=== PATIENT | female | born 1995 | race Two or more races ===

== ENCOUNTER 2019-11-27 23:27 | Emergency (ER) | payer OTHER ==
[~2019-11-27] VITALS: Ht 157.5 cm; Wt 77.3 kg
[2019-11-28 01:52] LABS: BASOPHILS % (AUTO) 0.7 % (0.0-2.0); HEMATOCRIT 37.8 % (36-46); HEMOGLOBIN 12.8 g/dL (12.0-16.0); LYMPHOCYTES # (AUTO) 2.5 K/uL (1.0-4.8); LYMPHOCYTES % (AUTO) 23.9 % (22.0-44.0); MEAN CORPUSCULAR HEMOGLOBIN 28.9 pg (26.0-34.0); MEAN CORPUSCULAR HGB CONC 33.9 G/dL (31.0-37.0); MEAN CORPUSCULAR VOLUME 85 fL (80-100); MONOCYTES # (AUTO) 0.6 K/uL (0.1-1.0); MONOCYTES % (AUTO) 5.9 % (2.0-9.0); NEUTROPHILS # (AUTO) 7.1 K/uL (1.8-7.7); NEUTROPHILS % (AUTO) 68.5 % (40.0-70.0); PLATELET COUNT (AUTO) 308 K/uL (150-450); RED BLOOD CELL COUNT(AUTO) 4.42 MIL/uL (4.00-5.20); RED CELL DISTRIBUTION WIDTH 13.1 % (11.5-14.5)
[2019-11-28 02:05] LABS: AMPHET/METH SCREEN,URINE NEGATIVE (NEGATIVE); BARBITURATE SCREEN, URINE NEGATIVE (NEGATIVE); BENZODIAZEPINES SCREEN,URINE NEGATIVE (NEGATIVE); CANNABINOID SCREEN,URINE NEGATIVE (NEGATIVE); COCAINE SCREEN,URINE NEGATIVE (NEGATIVE); METHADONE SCREEN, URINE NEGATIVE (NEGATIVE); OPIATE SCREEN,URINE NEGATIVE (NEGATIVE); PHENCYCLIDINE SCREEN,URINE NEGATIVE (NEGATIVE)
[2019-11-28 02:06] LABS: ANION GAP 12 mmol/L (8-16); CALCIUM, TOTAL 9.7 mg/dL (8.8-10.5); CARBON DIOXIDE 26 mmol/L (22-29); CHLORIDE 103 mmol/L (98-107); CREATININE 0.68 mg/dL (0.60-1.30); GLOMERULAR FILTR. RATE CALC > 60 mL/min (>60); GLUCOSE,RANDOM 107 mg/dL (70-110); POTASSIUM 3.9 mmol/L (3.5-5.1); SODIUM SERUM 141 mmol/L (136-145); UREA NITROGEN, BLOOD 12 mg/dL (7-18)
[2019-11-28 02:17] LABS: ALANINE AMINOTRANSFERASE 18 U/L (12-78); ALBUMIN 4.3 g/dL (3.4-5.0); ALKALINE PHOSPHATASE 68 U/L (46-116); ASPARTATE AMINOTRANSFERASE 13 U/L (15-37); BILIRUBIN,TOTAL 0.2 mg/dL (0.1-1.0); HCG,QUANTITATIVE < 1 mIU/mL (0-6)
[2019-11-28 03:04] VITALS: BP 118/71
== END 2019-11-28 03:05 | disposition home or self-care (01) ==
LOC: EMS 23:27
DX: R45.851 Suicidal ideations (principal); F32.9 Major depressive disorder, single episode, unspecified
CPT/HCPCS: 36415; 80053; 80307; 84702; 85025; 99285; G0480

== ENCOUNTER 2022-03-15 13:00 | Emergency (ER) | payer OTHER ==
[~2022-03-15] VITALS: Ht 157.5 cm; Wt 86.4 kg
[2022-03-15] MEDS ORDERED: SODIUM CHLORIDE 0.9% 1,000 ML IV ONE (13:45)
[2022-03-15 13:57] LABS: ANION GAP 9 mmol/L (8-16); CALCIUM, TOTAL 9.5 mg/dL (8.8-10.5); CARBON DIOXIDE 29 mmol/L (22-29); CHLORIDE 102 mmol/L (98-107); CREATININE 0.59 mg/dL (0.60-1.30); GLUCOSE,RANDOM 92 mg/dL (70-110); POTASSIUM 3.7 mmol/L (3.5-5.1); SODIUM SERUM 140 mmol/L (136-145); UREA NITROGEN, BLOOD 7 mg/dL (7-18)
[2022-03-15 14:00] LABS: GLOMERULAR FILTR. RATE CALC > 60 mL/min (>60)
[2022-03-15 14:02] LABS: BASOPHILS % (AUTO) 0.6 % (0.0-2.0); EOSINOPHILS % (AUTO) 1.6 % (1.0-6.0); HEMATOCRIT 41.1 % (36-46); HEMOGLOBIN 14.2 g/dL (12.0-16.0); LYMPHOCYTES % (AUTO) 26.8 % (22.0-44.0); MEAN CORPUSCULAR HEMOGLOBIN 28.9 pg (26.0-34.0); MEAN CORPUSCULAR HGB CONC 34.6 G/dL (31.0-37.0); MEAN CORPUSCULAR VOLUME 83 fL (80-100); MONOCYTES # (AUTO) 0.7 K/uL (0.1-1.0); MONOCYTES % (AUTO) 6.3 % (2.0-9.0); NEUTROPHILS # (AUTO) 7.2 K/uL (1.8-7.7); NEUTROPHILS % (AUTO) 64.7 % (40.0-70.0); PLATELET COUNT (AUTO) 349 K/uL (150-450); RED BLOOD CELL COUNT(AUTO) 4.93 MIL/uL (4.00-5.20)
[2022-03-15 14:03] LABS: ALANINE AMINOTRANSFERASE 21 U/L (12-78); ALBUMIN 4.2 g/dL (3.4-5.0); ALKALINE PHOSPHATASE 102 U/L (46-116); ASPARTATE AMINOTRANSFERASE 12 U/L (15-37); BILIRUBIN,TOTAL 0.3 mg/dL (0.1-1.0)
[2022-03-15 14:14] LABS: TOTAL PROTEIN, SERUM 8.4 g/dL (6.4-8.2)
[2022-03-15 15:30] VITALS: BP 134/79
[2022-03-15 16:32] LABS: APPEARANCE,URINE CLEAR (CLEAR); BILIRUBIN,URINE NEGATIVE (NEGATIVE); GLUCOSE, URINE (UA) NEGATIVE (NEGATIVE); LEUKOCYTE ESTERASE ,URINE NEGATIVE (NEGATIVE); NITRATE,URINE NEGATIVE (NEGATIVE); OCCULT BLOOD,URINE NEGATIVE (NEGATIVE); PH,URINE 6.5 (5.0-8.0); PROTEIN,URINE NEGATIVE (NEGATIVE); SPECIFIC GRAVITIY, URINE 1.017 (1.003-1.030); UROBILINOGEN,URINE <=1.0 mg/dL (<=1.0)
== END 2022-03-15 17:26 | disposition home or self-care (01) ==
LOC: EMS 13:00
DX: M54.9 Dorsalgia, unspecified (principal); R11.0 Nausea; F32.9 Major depressive disorder, single episode, unspecified
CPT/HCPCS: 80053; 81003; 84703; 85025; 96360; 96361; 99284; 36415-L1; 36415-TC

== ENCOUNTER 2023-04-22 10:17 | Inpatient (IN) | payer MEDICAID, OTHER ==
[~2023-04-22] VITALS: Ht 157.5 cm; Wt 82.1 kg
[2023-04-22 10:55] LABS: BASOPHILS % (AUTO) 0.8 % (0.0-2.0); EOSINOPHILS % (AUTO) 2.2 % (1.0-6.0); HEMATOCRIT 39.7 % (36-46); HEMOGLOBIN 13.7 g/dL (12.0-16.0); LYMPHOCYTES # (AUTO) 1.7 K/uL (1.0-4.8); LYMPHOCYTES % (AUTO) 30.4 % (22.0-44.0); MEAN CORPUSCULAR HEMOGLOBIN 30.2 pg (26.0-34.0); MEAN CORPUSCULAR HGB CONC 34.7 G/dL (31.0-37.0); MEAN CORPUSCULAR VOLUME 87 fL (80-100); MONOCYTES # (AUTO) 0.3 K/uL (0.1-1.0); MONOCYTES % (AUTO) 5.1 % (2.0-9.0); NEUTROPHILS # (AUTO) 3.5 K/uL (1.8-7.7); NEUTROPHILS % (AUTO) 61.5 % (40.0-70.0); PLATELET COUNT (AUTO) 303 K/uL (150-450); RED BLOOD CELL COUNT(AUTO) 4.55 MIL/uL (4.00-5.20); RED CELL DISTRIBUTION WIDTH 12.8 % (11.5-14.5); WHITE BLOOD COUNT (AUTO) 5.7 K/uL (4.5-11.0)
[2023-04-22 10:59] LABS: COVID AG,FIA SOURCE NASAL SWAB
[2023-04-22 11:04] LABS: ANION GAP 13 mmol/L (8-16); CALCIUM, TOTAL 9.7 mg/dL (8.8-10.5); CARBON DIOXIDE 26 mmol/L (22-29); CHLORIDE 104 mmol/L (98-107); CREATININE 0.66 mg/dL (0.60-1.30); GLOMERULAR FILTR. RATE CALC > 60 mL/min (>60); GLUCOSE,RANDOM 136 mg/dL (70-110); POTASSIUM 3.8 mmol/L (3.5-5.1); SODIUM SERUM 143 mmol/L (136-145); UREA NITROGEN, BLOOD 8 mg/dL (7-18)
[2023-04-22 11:10] LABS: ALANINE AMINOTRANSFERASE 42 U/L (12-78); ALBUMIN 4.1 g/dL (3.4-5.0); ALKALINE PHOSPHATASE 79 U/L (46-116); ASPARTATE AMINOTRANSFERASE 20 U/L (15-37); BILIRUBIN,TOTAL 0.4 mg/dL (0.1-1.0); TOTAL PROTEIN, SERUM 8.5 g/dL (6.4-8.2)
[2023-04-22 11:50] LABS: ALCOHOL, BLOOD (SERUM) < 3 mg/dL (0-10)
[2023-04-22 12:02] LABS: SARS-COV2 (COVID) ANTIGEN,FIA Negative (Negative)
[2023-04-22] MEDS ORDERED: HALOPERIDOL 5 MG TABLET PO PRN (22:00)
[2023-04-22] MEDS ORDERED: LORazepam 2 MG TABLET PO PRN (22:00)
[2023-04-22] MEDS ORDERED: ZOLPIDEM TARTRATE 10 MG TABLET PO PRN (22:00)
[2023-04-23 08:40] LABS: APPEARANCE,URINE HAZY (CLEAR); BILIRUBIN,URINE NEGATIVE (NEGATIVE); COLOR,URINE YELLOW (YELLOW); GLUCOSE, URINE (UA) NEGATIVE (NEGATIVE); KETONES,URINE NEGATIVE (NEGATIVE); LEUKOCYTE ESTERASE ,URINE LARGE (NEGATIVE); NITRATE,URINE NEGATIVE (NEGATIVE); OCCULT BLOOD,URINE NEGATIVE (NEGATIVE); PROTEIN,URINE TRACE mg/dL (NEGATIVE); SPECIFIC GRAVITIY, URINE 1.013 (1.003-1.030); UROBILINOGEN,URINE <=1.0 mg/dL (<=1.0)
[2023-04-23 08:45] LABS: ALCOHOL, URINE DRUG SCREEN NEGATIVE (NEGATIVE); AMPHET/METH SCREEN,URINE NEGATIVE (NEGATIVE); BARBITURATE SCREEN, URINE NEGATIVE (NEGATIVE); BENZODIAZEPINES SCREEN,URINE NEGATIVE (NEGATIVE); CANNABINOID SCREEN,URINE NEGATIVE (NEGATIVE); COCAINE SCREEN,URINE NEGATIVE (NEGATIVE); METHADONE SCREEN, URINE NEGATIVE (NEGATIVE); OPIATE SCREEN,URINE NEGATIVE (NEGATIVE); PHENCYCLIDINE SCREEN,URINE NEGATIVE (NEGATIVE)
[2023-04-23 08:54] LABS: BACTERIA,URINE Many /HPF (None Seen); RBC,URINE 0-2 /HPF (0-2); SQUAMOUS EPITHELIAL CELL,UR Moderate /LPF (None Seen)
[2023-04-23 08:55] LABS: CALCIUM OXALATE CRYSTALS,UR Few /LPF (None Seen)
[2023-04-23 21:05] VITALS: BP 101/66; PULSE 71; RESP 18; TEMP 97.5; O2SAT 97
[2023-04-23] MEDS ORDERED: BACITRACIN 28 GM OINTMENT TP PRN (21:15)
[2023-04-23] MEDS ORDERED: ACETAMINOPHEN 325 MG TABLET PO PRN (21:15)
[2023-04-23] MEDS ORDERED: OMEPRAZOLE 20 MG CAPSULE PO PRN (21:15)
[2023-04-23] MEDS ORDERED: MAG HYDROX/AL HYDROX/SIMETH ES 30 ML SUSPENSION UDCUP PO PRN (21:15)
[2023-04-23] MEDS ORDERED: ALBUTEROL SULFATE HFA 90 MCG/PUFF 8 GM INHALER IH PRN (21:15)
[2023-04-23] MEDS ORDERED: LOPERAMIDE HCL 2 MG CAPSULE PO PRN (21:15)
[2023-04-23] MEDS ORDERED: ONDANSETRON HCL 4 MG TABLET PO PRN (21:15)
[2023-04-23] MEDS ORDERED: MAGNESIUM HYDROXIDE SUSPENSION 30 ML UDCUP PO PRN (21:15)
[2023-04-23] MEDS ORDERED: BENZOCAINE/MENTHOL LOZENGE PO PRN (21:15)
[2023-04-23] MEDS ORDERED: IBUPROFEN 600 MG TABLET PO PRN (21:15)
[2023-04-23] MEDS ORDERED: CloNIDine HCL 0.1 MG TABLET PO PRN (21:15)
[2023-04-23] MEDS ORDERED: DOCUSATE SODIUM 100 MG CAPSULE PO PRN (21:15)
[2023-04-23] MEDS ORDERED: PETROLATUM,WHITE 28 GM JELLY TP PRN (21:15)
[2023-04-24 08:38] VITALS: BP 132/70; PULSE 67; RESP 17; TEMP 98; O2SAT 98
[2023-04-24 20:36] VITALS: BP 112/93; PULSE 100; RESP 18; TEMP 97.9; O2SAT 96
[2023-04-25] MEDS: MAGNESIUM OXIDE 400 MG TABLET PO SCH (08:44)
[2023-04-25] MEDS: DIVALPROEX SODIUM 500 MG DR TABLET PO SCH ×2 (08:44→17:00)
[2023-04-25] MEDS: CYANOCOBALAMIN 100 MCG TABLET PO SCH (08:45)
[2023-04-25] MEDS: SELENIUM 50 MCG PO SCH (08:45)
[2023-04-25] MEDS: ZINC SULFATE 220 MG CAPSULE PO SCH (08:45)
[2023-04-25 08:55] VITALS: BP 106/68; PULSE 91; RESP 20; TEMP 97.5; O2SAT 98
[2023-04-25] MEDS ORDERED: RisperiDONE 1 MG TABLET PO SCH (09:00)
[2023-04-25] MEDS: LITHIUM CARBONATE 300 MG CAPSULE PO SCH (17:00)
[2023-04-25] MEDS: RisperiDONE 3 MG TABLET PO SCH (17:00)
[2023-04-25 20:00] VITALS: RESP 18; TEMP 98
[2023-04-25 20:58] VITALS: RESP 18
[2023-04-25 21:58] VITALS: RESP 17
[2023-04-26 08:14] VITALS: BP 107/67; PULSE 79; RESP 18; TEMP 97.5; O2SAT 98
[2023-04-26] MEDS: CYANOCOBALAMIN 100 MCG TABLET PO SCH (08:55)
[2023-04-26] MEDS: ZINC SULFATE 220 MG CAPSULE PO SCH (08:55)
[2023-04-26] MEDS: MAGNESIUM OXIDE 400 MG TABLET PO SCH (08:55)
[2023-04-26] MEDS: LITHIUM CARBONATE 300 MG CAPSULE PO SCH ×2 (09:00→17:00)
[2023-04-26] MEDS: DIVALPROEX SODIUM 500 MG DR TABLET PO SCH ×2 (09:00→17:00)
[2023-04-26] MEDS: SELENIUM 50 MCG PO SCH (09:00)
[2023-04-26] MEDS: RisperiDONE 3 MG TABLET PO SCH ×2 (09:00→17:00)
[2023-04-27 01:27] VITALS: BP 132/72; PULSE 87; RESP 17; TEMP 98.2; O2SAT 99
[2023-04-27] MEDS: RisperiDONE 3 MG TABLET PO SCH ×2 (09:00→17:00)
[2023-04-27] MEDS: LITHIUM CARBONATE 300 MG CAPSULE PO SCH ×2 (09:00→17:00)
[2023-04-27] MEDS: DIVALPROEX SODIUM 500 MG DR TABLET PO SCH ×2 (09:00→17:00)
[2023-04-27] MEDS: SELENIUM 50 MCG PO SCH (09:00)
[2023-04-27] MEDS: CYANOCOBALAMIN 100 MCG TABLET PO SCH (09:05)
[2023-04-27] MEDS: ZINC SULFATE 220 MG CAPSULE PO SCH (09:05)
[2023-04-27] MEDS: MAGNESIUM OXIDE 400 MG TABLET PO SCH (09:06)
[2023-04-27 10:23] VITALS: BP 122/69; PULSE 100; RESP 16; TEMP 97.7; O2SAT 97
[2023-04-27 20:18] VITALS: BP 101/68; PULSE 68; RESP 18; TEMP 97.6; O2SAT 98
[2023-04-28 08:21] VITALS: BP 115/83; PULSE 75; RESP 18; TEMP 97.9; O2SAT 98
[2023-04-28] MEDS: SELENIUM 50 MCG PO SCH (08:22)
[2023-04-28] MEDS: CYANOCOBALAMIN 100 MCG TABLET PO SCH (08:22)
[2023-04-28] MEDS: ZINC SULFATE 220 MG CAPSULE PO SCH (08:22)
[2023-04-28] MEDS: MAGNESIUM OXIDE 400 MG TABLET PO SCH (08:22)
[2023-04-28] MEDS: RisperiDONE 3 MG TABLET PO SCH ×2 (08:26→17:00)
[2023-04-28] MEDS: DIVALPROEX SODIUM 500 MG DR TABLET PO SCH ×2 (08:27→17:00)
[2023-04-28] MEDS: LITHIUM CARBONATE 300 MG CAPSULE PO SCH ×2 (08:27→17:00)
[2023-04-28 20:14] VITALS: BP 119/72; PULSE 78; RESP 17; TEMP 97.9
[2023-04-29 08:16] VITALS: BP 116/70; PULSE 82; RESP 18; TEMP 98.9; O2SAT 99
[2023-04-29] MEDS: SELENIUM 50 MCG PO SCH (08:18)
[2023-04-29] MEDS: CYANOCOBALAMIN 100 MCG TABLET PO SCH (08:18)
[2023-04-29] MEDS: ZINC SULFATE 220 MG CAPSULE PO SCH (08:18)
[2023-04-29] MEDS: MAGNESIUM OXIDE 400 MG TABLET PO SCH (08:18)
[2023-04-29] MEDS: DIVALPROEX SODIUM 500 MG DR TABLET PO SCH ×2 (08:39→16:30)
[2023-04-29] MEDS: RisperiDONE 3 MG TABLET PO SCH ×2 (08:39→16:31)
[2023-04-29] MEDS: LITHIUM CARBONATE 300 MG CAPSULE PO SCH ×2 (08:39→16:30)
[2023-04-29 20:14] VITALS: BP 121/68; PULSE 79; RESP 18; TEMP 98.1; O2SAT 97
[2023-04-30 08:19] VITALS: BP 115/66; PULSE 92; RESP 17; TEMP 97.5; O2SAT 96
[2023-04-30] MEDS: ZINC SULFATE 220 MG CAPSULE PO SCH (08:20)
[2023-04-30] MEDS: SELENIUM 50 MCG PO SCH (08:20)
[2023-04-30] MEDS: MAGNESIUM OXIDE 400 MG TABLET PO SCH (08:20)
[2023-04-30] MEDS: DIVALPROEX SODIUM 500 MG DR TABLET PO SCH ×2 (08:21→16:19)
[2023-04-30] MEDS: LITHIUM CARBONATE 300 MG CAPSULE PO SCH ×2 (08:21→16:19)
[2023-04-30] MEDS: RisperiDONE 3 MG TABLET PO SCH ×2 (08:22→16:20)
[2023-04-30] MEDS: CYANOCOBALAMIN 100 MCG TABLET PO SCH (08:22)
[2023-04-30 20:10] VITALS: BP 119/72; PULSE 95; RESP 18; TEMP 98.2; O2SAT 98
[2023-05-01] MEDS: SELENIUM 50 MCG PO SCH (08:40)
[2023-05-01] MEDS: ZINC SULFATE 220 MG CAPSULE PO SCH (08:41)
[2023-05-01] MEDS: CYANOCOBALAMIN 100 MCG TABLET PO SCH (08:41)
[2023-05-01] MEDS: MAGNESIUM OXIDE 400 MG TABLET PO SCH (08:43)
[2023-05-01] MEDS: LITHIUM CARBONATE 300 MG CAPSULE PO SCH ×2 (08:47→17:00)
[2023-05-01] MEDS: RisperiDONE 3 MG TABLET PO SCH ×2 (08:47→17:00)
[2023-05-01] MEDS: DIVALPROEX SODIUM 500 MG DR TABLET PO SCH ×2 (08:48→17:00)
[2023-05-02] MEDS: ZINC SULFATE 220 MG CAPSULE PO SCH (08:36)
[2023-05-02] MEDS: SELENIUM 50 MCG PO SCH (08:36)
[2023-05-02] MEDS: MAGNESIUM OXIDE 400 MG TABLET PO SCH (08:36)
[2023-05-02] MEDS: CYANOCOBALAMIN 100 MCG TABLET PO SCH (08:36)
[2023-05-02] MEDS: LITHIUM CARBONATE 300 MG CAPSULE PO SCH ×2 (08:44→17:00)
[2023-05-02] MEDS: RisperiDONE 3 MG TABLET PO SCH ×2 (08:44→17:00)
[2023-05-02] MEDS: DIVALPROEX SODIUM 500 MG DR TABLET PO SCH ×2 (08:44→17:00)
[2023-05-02 20:34] VITALS: RESP 18; TEMP 98
[2023-05-03 08:26] VITALS: RESP 18; TEMP 98.6
[2023-05-03] MEDS: ZINC SULFATE 220 MG CAPSULE PO SCH (08:38)
[2023-05-03] MEDS: CYANOCOBALAMIN 100 MCG TABLET PO SCH (08:38)
[2023-05-03] MEDS: SELENIUM 50 MCG PO SCH (08:39)
[2023-05-03] MEDS: MAGNESIUM OXIDE 400 MG TABLET PO SCH (08:39)
[2023-05-03] MEDS: LITHIUM CARBONATE 300 MG CAPSULE PO SCH ×2 (08:47→17:00)
[2023-05-03] MEDS: RisperiDONE 3 MG TABLET PO SCH ×2 (08:47→17:00)
[2023-05-03] MEDS: DIVALPROEX SODIUM 500 MG DR TABLET PO SCH ×2 (08:48→17:00)
[2023-05-03 20:04] VITALS: RESP 19; TEMP 97.8
[2023-05-04 08:39] VITALS: RESP 18
[2023-05-04] MEDS: DIVALPROEX SODIUM 500 MG DR TABLET PO SCH ×2 (09:00→16:15)
[2023-05-04] MEDS: RisperiDONE 3 MG TABLET PO SCH ×2 (09:00→16:12)
[2023-05-04] MEDS: LITHIUM CARBONATE 300 MG CAPSULE PO SCH ×2 (09:00→16:15)
[2023-05-04] MEDS: ZINC SULFATE 220 MG CAPSULE PO SCH (09:50)
[2023-05-04] MEDS: CYANOCOBALAMIN 100 MCG TABLET PO SCH (09:50)
[2023-05-04] MEDS: SELENIUM 50 MCG PO SCH (09:50)
[2023-05-04] MEDS: MAGNESIUM OXIDE 400 MG TABLET PO SCH (09:50)
[2023-05-05 00:42] VITALS: RESP 18
[2023-05-05 08:32] VITALS: RESP 17; TEMP 98.3
[2023-05-05] MEDS: LITHIUM CARBONATE 300 MG CAPSULE PO SCH ×2 (09:00→16:35)
[2023-05-05] MEDS: DIVALPROEX SODIUM 500 MG DR TABLET PO SCH ×2 (09:00→16:35)
[2023-05-05] MEDS: RisperiDONE 3 MG TABLET PO SCH ×2 (09:00→16:35)
[2023-05-05] MEDS: SELENIUM 50 MCG PO SCH (10:01)
[2023-05-05] MEDS: ZINC SULFATE 220 MG CAPSULE PO SCH (10:02)
[2023-05-05] MEDS: CYANOCOBALAMIN 100 MCG TABLET PO SCH (10:02)
[2023-05-05] MEDS: MAGNESIUM OXIDE 400 MG TABLET PO SCH (10:02)
[2023-05-05 20:20] VITALS: RESP 18
[2023-05-06] MEDS: LITHIUM CARBONATE 300 MG CAPSULE PO SCH ×2 (09:00→17:00)
[2023-05-06] MEDS: DIVALPROEX SODIUM 500 MG DR TABLET PO SCH ×2 (09:00→17:00)
[2023-05-06] MEDS: MAGNESIUM OXIDE 400 MG TABLET PO SCH (09:31)
[2023-05-06] MEDS: CYANOCOBALAMIN 100 MCG TABLET PO SCH (09:31)
[2023-05-06] MEDS: SELENIUM 50 MCG PO SCH (09:31)
[2023-05-06] MEDS: ZINC SULFATE 220 MG CAPSULE PO SCH (09:31)
[2023-05-06] MEDS: RisperiDONE 3 MG TABLET PO SCH ×2 (09:31→17:20)
[2023-05-06 14:48] VITALS: TEMP 98
[2023-05-06 20:20] VITALS: RESP 18; TEMP 98.1
[2023-05-07 08:47] VITALS: RESP 18; TEMP 97.4
[2023-05-07] MEDS: CYANOCOBALAMIN 100 MCG TABLET PO SCH (09:14)
[2023-05-07] MEDS: MAGNESIUM OXIDE 400 MG TABLET PO SCH (09:15)
[2023-05-07] MEDS: LITHIUM CARBONATE 300 MG CAPSULE PO SCH ×2 (09:15→16:29)
[2023-05-07] MEDS: RisperiDONE 3 MG TABLET PO SCH ×2 (09:15→16:29)
[2023-05-07] MEDS: DIVALPROEX SODIUM 500 MG DR TABLET PO SCH ×2 (09:15→16:29)
[2023-05-07] MEDS: ZINC SULFATE 220 MG CAPSULE PO SCH (09:15)
[2023-05-07] MEDS: SELENIUM 50 MCG PO SCH (09:16)
[2023-05-07 21:40] VITALS: BP 113/79; PULSE 18; RESP 18; TEMP 97.5
[2023-05-08 08:47] VITALS: RESP 17; TEMP 97.3
[2023-05-08] MEDS: SELENIUM 50 MCG PO SCH (10:15)
[2023-05-08] MEDS: CYANOCOBALAMIN 100 MCG TABLET PO SCH (10:16)
[2023-05-08] MEDS: ZINC SULFATE 220 MG CAPSULE PO SCH (10:16)
[2023-05-08] MEDS: DIVALPROEX SODIUM 500 MG DR TABLET PO SCH ×2 (10:16→17:05)
[2023-05-08] MEDS: LITHIUM CARBONATE 300 MG CAPSULE PO SCH ×2 (10:16→17:05)
[2023-05-08] MEDS: MAGNESIUM OXIDE 400 MG TABLET PO SCH (10:17)
[2023-05-08] MEDS: RisperiDONE 3 MG TABLET PO SCH ×2 (10:17→17:04)
[2023-05-08 20:27] VITALS: RESP 18; TEMP 97.4
[2023-05-09] MEDS: RisperiDONE 3 MG TABLET PO SCH ×2 (08:22→17:10)
[2023-05-09] MEDS: CYANOCOBALAMIN 100 MCG TABLET PO SCH (08:22)
[2023-05-09] MEDS: MAGNESIUM OXIDE 400 MG TABLET PO SCH (08:22)
[2023-05-09] MEDS: DIVALPROEX SODIUM 500 MG DR TABLET PO SCH ×2 (08:22→17:10)
[2023-05-09] MEDS: LITHIUM CARBONATE 300 MG CAPSULE PO SCH ×2 (08:22→17:10)
[2023-05-09] MEDS: ZINC SULFATE 220 MG CAPSULE PO SCH (08:23)
[2023-05-09] MEDS: SELENIUM 50 MCG PO SCH (08:23)
[2023-05-09 10:59] VITALS: BP 108/55; PULSE 98; RESP 18; TEMP 98.2
[2023-05-09 20:35] VITALS: BP 99/64; PULSE 86; RESP 18; TEMP 97.8; O2SAT 97
[2023-05-10 08:14] VITALS: BP 107/62; PULSE 89; RESP 18; TEMP 98; O2SAT 98
[2023-05-10] MEDS: LITHIUM CARBONATE 300 MG CAPSULE PO SCH ×2 (09:10→16:58)
[2023-05-10] MEDS: DIVALPROEX SODIUM 500 MG DR TABLET PO SCH ×2 (09:10→16:58)
[2023-05-10] MEDS: RisperiDONE 3 MG TABLET PO SCH ×2 (09:10→16:58)
[2023-05-10] MEDS: CYANOCOBALAMIN 100 MCG TABLET PO SCH (09:10)
[2023-05-10] MEDS: MAGNESIUM OXIDE 400 MG TABLET PO SCH (09:11)
[2023-05-10] MEDS: SELENIUM 50 MCG PO SCH (09:12)
[2023-05-10] MEDS: ZINC SULFATE 220 MG CAPSULE PO SCH (09:12)
[2023-05-10 22:11] VITALS: RESP 18; TEMP 98; O2SAT 98
[2023-05-11 08:29] LABS: LITHIUM 0.47 mmol/L (0.60-1.20)
[2023-05-11] MEDS: CYANOCOBALAMIN 100 MCG TABLET PO SCH (08:41)
[2023-05-11] MEDS: ZINC SULFATE 220 MG CAPSULE PO SCH (08:42)
[2023-05-11] MEDS: LITHIUM CARBONATE 300 MG CAPSULE PO SCH (08:42)
[2023-05-11] MEDS: DIVALPROEX SODIUM 500 MG DR TABLET PO SCH (08:42)
[2023-05-11] MEDS: MAGNESIUM OXIDE 400 MG TABLET PO SCH (08:42)
[2023-05-11] MEDS: SELENIUM 50 MCG PO SCH (08:42)
[2023-05-11] MEDS: RisperiDONE 3 MG TABLET PO SCH (08:42)
[2023-05-11 09:43] VITALS: BP 109/69; PULSE 96; RESP 17; TEMP 97.9; O2SAT 99
[2023-05-11] MEDS ORDERED: DIVA-112 PO (10:10)
[2023-05-11] MEDS ORDERED: RISP3TAB63 PO (10:10)
[2023-05-11] MEDS ORDERED: LITH300C3 PO (10:10)
== END 2023-05-11 12:00 | disposition home or self-care (01) | DRG 750 ==
LOC: EMS 10:17 → B2S 04-23 15:48
PROVIDERS: ADMIT Psychiatry & Neurology Psychiatry; ATTEND Psychiatry & Neurology Psychiatry
DX: F25.9 Schizoaffective disorder, unspecified (principal); G93.41 Metabolic encephalopathy; F41.9 Anxiety disorder, unspecified; K59.00 Constipation, unspecified; G47.00 Insomnia, unspecified; Z20.822 Contact with and (suspected) exposure to COVID-19; E66.9 Obesity, unspecified; Z68.33 Body mass index [BMI] 33.0-33.9, adult
CPT/HCPCS: 80053; 80164; 80178; 80307; 81001; 84703; 85025; 87086; 87186; 99285; G0480

== ENCOUNTER 2025-05-14 15:02 | Inpatient (IN) | payer MEDICAID, OTHER ==
[~2025-05-14] VITALS: Ht 157.5 cm; Wt 88.1 kg
[~2025-05-14 15:02] MED LIST: DIVA-112 PO; LITH300C3 PO; RISP3TAB77 PO
[2025-05-14] MEDS: LORazepam 2 MG/ML VIAL IM ONE (15:33)
[2025-05-14 16:23] LABS: COVID AG,FIA SOURCE NASAL SWAB
[2025-05-14] MEDS: ZIPRASIDONE MESYLATE 20 MG/VIAL IM ONE (16:28)
[2025-05-14 16:47] LABS: SARS-COV2 (COVID) ANTIGEN,FIA Negative (Negative)
[2025-05-14 17:54] LABS: PLATELET COUNT (AUTO) 285 K/uL (150-450); RED BLOOD CELL COUNT(AUTO) 4.69 MIL/uL (4.00-5.20); RED CELL DISTRIBUTION WIDTH 13.7 % (11.5-14.5); WHITE BLOOD COUNT (AUTO) 11.7 K/uL (4.5-11.0)
[2025-05-14 18:02] LABS: CALCIUM, TOTAL 9.0 mg/dL (8.8-10.5); CREATININE 0.49 mg/dL (0.60-1.30); GLOMERULAR FILTR. RATE CALC > 60 mL/min (>60); GLUCOSE,RANDOM 101 mg/dL (70-110); SODIUM SERUM 140 mmol/L (136-145); UREA NITROGEN, BLOOD 14 mg/dL (7-18)
[2025-05-14 18:21] VITALS: O2SAT 97
[2025-05-14 23:09] VITALS: BP 125/81; PULSE 86; RESP 18; TEMP 97.9; O2SAT 99
[2025-05-15 08:05] VITALS: BP 123/78; PULSE 79; RESP 16; TEMP 97.9; O2SAT 97
[2025-05-15] MEDS ORDERED: ONDANSETRON 4 MG TABLET PO PRN (09:45)
[2025-05-15] MEDS ORDERED: MAG HYDROX/ALUMINUM HYD/SIMETH ES 30 ML SUSPENSION UDCUP PO PRN (09:45)
[2025-05-15] MEDS ORDERED: ACETAMINOPHEN 325 MG TABLET PO PRN (09:45)
[2025-05-15] MEDS ORDERED: BACITRACIN 28 GM OINTMENT TP PRN (09:45)
[2025-05-15] MEDS ORDERED: MAGNESIUM HYDROXIDE SUSPENSION 30 ML UDCUP PO PRN (09:45)
[2025-05-15] MEDS ORDERED: BENZOCAINE/MENTHOL [CEPACOL] LOZENGE PO PRN (09:45)
[2025-05-15] MEDS ORDERED: IBUPROFEN 600 MG TABLET PO PRN (09:45)
[2025-05-15] MEDS ORDERED: PETROLATUM,WHITE 28 GM JELLY TP PRN (09:45)
[2025-05-15] MEDS ORDERED: OMEPRAZOLE 20 MG CAPSULE PO PRN (09:45)
[2025-05-15] MEDS ORDERED: ALBUTEROL SULFATE HFA 90 MCG/PUFF 8 GM INHALER IH PRN (09:45)
[2025-05-15] MEDS ORDERED: LOPERAMIDE HCL 2 MG CAPSULE PO PRN (09:45)
[2025-05-15] MEDS: DIVALPROEX SODIUM 500 MG DR TABLET PO SCH (17:20)
[2025-05-15] MEDS: ZOLPIDEM TARTRATE 10 MG TABLET PO PRN (20:49)
[2025-05-15 21:08] VITALS: BP 138/83; PULSE 97; RESP 17; TEMP 97.6; O2SAT 99
[2025-05-16 08:33] VITALS: BP 101/70; PULSE 96; RESP 18; TEMP 97.8; O2SAT 99
[2025-05-16] MEDS: CHOLECALCIFEROL (VIT D3) 1,000 UNITS [25 MCG] TABLET PO SCH (08:38)
[2025-05-16] MEDS: DOCUSATE SODIUM 100 MG CAPSULE PO PRN (16:22)
[2025-05-16 20:12] VITALS: BP 102/77; PULSE 87; RESP 18; TEMP 97.5; O2SAT 99
[2025-05-17 08:19] VITALS: BP 94/60; PULSE 95; RESP 16; TEMP 97.5; O2SAT 100
== END 2025-05-17 14:42 | disposition home or self-care (01) | DRG 750 ==
LOC: EMS 15:02 → B3A 21:54
PROVIDERS: ADMIT Psychiatry & Neurology Psychiatry; ATTEND Psychiatry & Neurology Psychiatry
DX: F20.9 Schizophrenia, unspecified (principal); Z78.1 Physical restraint status; E55.9 Vitamin D deficiency, unspecified; K59.00 Constipation, unspecified; Z20.822 Contact with and (suspected) exposure to COVID-19; G47.00 Insomnia, unspecified; F41.9 Anxiety disorder, unspecified; Z91.199 Patient's noncompliance with other medical treatment and regimen due to unspecified reason; E66.9 Obesity, unspecified
CPT/HCPCS: 80048; 84703; 85025; 99285; G0480; J1200; J1630; J2060; J3486